=== PATIENT | female | born 1950 | race Caucasian/White ===

== ENCOUNTER → 2024-05-14 10:40 | Outpatient (REF) | payer MEDICARE, SELFPAY | LOC: HWRAD 10:40 | PROVIDERS: ATTENDING PHYSICIAN Internal Medicine Rheumatology; FAMILY PHYSICIAN Nurse Practitioner Adult Health | DX: M81.0 Age-related osteoporosis without current pathological fracture (principal) | CPT/HCPCS: 77080 ==

== ENCOUNTER → 2024-10-09 09:58 | Outpatient (REF) | payer MEDICARE, SELFPAY | LOC: HWWDC 09:58 | PROVIDERS: ATTENDING PHYSICIAN Nurse Practitioner Adult Health | DX: Z12.31 Encounter for screening mammogram for malignant neoplasm of breast (principal) | CPT/HCPCS: 77063; 77067 ==